=== PATIENT | female | born 1985 | race Caucasian/White ===

== ENCOUNTER 2020-08-20 10:13 | Inpatient (IN) | payer OTHER ==
[~2020-08-20] VITALS: Ht 154.9 cm; Wt 54.0 kg
[2020-08-20] MEDS ORDERED: NAPROXEN250 MG PO (10:32)
[2020-08-20 10:48] LABS: BASOPHILS % 0.8 % (0.0-1.0); LYMPHOCYTES # (AUTO) 0.3 (1.0-3.2); MEAN CORPUSCULAR HEMOGLOBIN 15.6 pg (28-32); MEAN CORPUSCULAR HGB CONC 25.1 g/dL (31-35); MEAN CORPUSCULAR VOLUME 62.1 fL (81-99); MONOCYTES # (AUTO) 0.3 (0.2-0.8); MONOCYTES % 11.2 % (4.4-11.3); NEUTROPHILS # (AUTO) 1.9 (2.1-6.9); NEUTROPHILS % 75.6 % (38.7-80.0); PLATELET COUNT 206 x10e3/uL (140-360); RED BLOOD COUNT 3.59 x10e6/uL (3.6-5.1); RED CELL DISTRIBUTION WIDTH 18.9 % (11.7-14.4)
[2020-08-20 10:57] LABS: HEMATOCRIT 22.3 % (34.2-44.1); HEMOGLOBIN 5.6 g/dL (12.0-16.0)
[2020-08-20] MEDS ORDERED: ONDANSETRON HCL INJ 2MG/ML 2ML 2 MG/ML VIAL IV PRN (11:00)
[2020-08-20] MEDS ORDERED: SODIUM CHLORIDE 0.9% 250ML 250 ML IV ONE (11:00)
[2020-08-20 11:02] LABS: INR 1.15; PROTHROMBIN TIME 15.5 seconds (11.9-14.5)
[2020-08-20 11:12] LABS: ALANINE AMINOTRANSFERASE 21 IU/L (0-55); ALBUMIN 3.7 g/dL (3.5-5.0); ALKALINE PHOSPHATASE 28 IU/L (40-150); ANION GAP 13.3 mmol/L (8-16); BLOOD UREA NITROGEN 15 mg/dL (7-26); BUN/CREATININE RATIO 19 (6-25); CALCIUM 8.7 mg/dL (8.4-10.2); CARBON DIOXIDE 20 mmol/L (22-29); CHLORIDE 106 mmol/L (98-107); CREATINE KINASE 37 IU/L (29-168); CREATININE, SERUM 0.79 mg/dL (0.57-1.11); EST GLOMERULAR FILTRATION RATE > 60 ML/MIN (60-); GLUCOSE 103 mg/dL (74-118); POTASSIUM 3.3 mmol/L (3.5-5.1); SODIUM 136 mmol/L (136-145)
[2020-08-20] MEDS: CEFTRIAXONE SOD 1 GM in SODIUM CHLORIDE 0.9% 50ML 50 ML IV SCH (11:31)
[2020-08-20 11:51] LABS: LYMPHOCYTES % (MANUAL) 13 % (19-48); MONOCYTES % (MANUAL) 9 % (3.4-9.0); NEUTROPHILS % (MANUAL) 78 % (40-74); PLATELET ESTIMATE ADEQUATE; PLATELET MORPHOLOGY COMMENT NORMAL
[2020-08-20 11:52] LABS: HYPOCHROMASIA MODERATE
[2020-08-20 11:53] LABS: OVALOCYTES FEW; RBC MORPHOLOGY COMMENT ABNORMAL
[2020-08-20 11:54] LABS: ELLIPTOCYTE, RBC SLIGHT; MICROCYTOSIS MODERATE; SCHISTOCYTES RARE
[2020-08-20 11:55] LABS: HELMET CELLS RARE
[2020-08-20 14:11] VITALS: BP 110/41
[2020-08-20] MEDS ORDERED: THIAMINE HCL INJ 100 MG/ML 2ML VIAL IV ONE ×2 (15:30→22:00)
[2020-08-20 15:57] VITALS: BP 96/56
[2020-08-20] MEDS ORDERED: IRON SUCROSE 100 MG in SODIUM CHLORIDE 0.9% 100 ML 100 ML IV SCH (16:00)
[2020-08-20 16:17] LABS: FERRITIN 42.17 ng/mL (4.63-204.00); FREE THYROXINE INDEX 2.1285 (1.4-3.8); THYROID STIMULATING HORMONE 0.383 uIU/mL (0.350-4.940)
[2020-08-20] MEDS ORDERED: SODIUM CHLORIDE 0.9% 50ML 50 ML ONE ×3 (17:15→22:10)
[2020-08-20] MEDS ORDERED: SODIUM CHLORIDE 0.9% 250ML 250 ML ONE (17:16)
[2020-08-20] MEDS ORDERED: KCL 20 MEQ PACKET/ ORAL SOLN PO ONE (18:00)
[2020-08-20 19:30] VITALS: BP 103/68
[2020-08-20 19:46] VITALS: BP 94/45
[2020-08-20 20:06] VITALS: BP 94/45
[2020-08-20] MEDS: IRON SUCROSE 100 MG in SODIUM CHLORIDE 0.9% 100 ML 100 ML IV SCH (22:38)
[2020-08-20] MEDS: ACETAMINOPHEN 325 MG TAB PO PRN (23:50)
[2020-08-20] MEDS ORDERED: ACETAMINOPHEN 325 MG TAB ONE (23:56)
[2020-08-21] VITALS (7 sets, daily range): BP systolic 95–103; BP diastolic 59–69
[2020-08-21 05:54] LABS: BASOPHILS % 0.9 % (0.0-1.0); EOSINOPHILS % 0.6 % (0.0-6.0); HEMATOCRIT 26.6 % (34.2-44.1); HEMOGLOBIN 7.5 g/dL (12.0-16.0); LYMPHOCYTES # (AUTO) 1.2 (1.0-3.2); LYMPHOCYTES % 34.9 % (18.0-39.1); MEAN CORPUSCULAR HEMOGLOBIN 18.7 pg (28-32); MEAN CORPUSCULAR HGB CONC 28.2 g/dL (31-35); MEAN CORPUSCULAR VOLUME 66.3 fL (81-99); MONOCYTES # (AUTO) 0.6 (0.2-0.8); MONOCYTES % 16.4 % (4.4-11.3); NEUTROPHILS # (AUTO) 1.6 (2.1-6.9); NEUTROPHILS % 46.9 % (38.7-80.0); PLATELET COUNT 182 x10e3/uL (140-360); RED BLOOD COUNT 4.01 x10e6/uL (3.6-5.1); RED CELL DISTRIBUTION WIDTH 20.7 % (11.7-14.4)
[2020-08-21 06:04] LABS: ALANINE AMINOTRANSFERASE 22 IU/L (0-55); ALBUMIN 3.2 g/dL (3.5-5.0); ALKALINE PHOSPHATASE 27 IU/L (40-150); ANION GAP 8.7 mmol/L (8-16); BLOOD UREA NITROGEN 12 mg/dL (7-26); BUN/CREATININE RATIO 17 (6-25); CALCIUM 8.2 mg/dL (8.4-10.2); CARBON DIOXIDE 23 mmol/L (22-29); CHLORIDE 109 mmol/L (98-107); CREATININE, SERUM 0.69 mg/dL (0.57-1.11); EST GLOMERULAR FILTRATION RATE > 60 ML/MIN (60-); GLUCOSE 92 mg/dL (74-118); POTASSIUM 3.7 mmol/L (3.5-5.1); SODIUM 137 mmol/L (136-145)
[2020-08-21 07:50] LABS: EOSINOPHILS % (MANUAL) 1 % (0-7); LYMPHOCYTES % (MANUAL) 34 % (19-48); MONOCYTES % (MANUAL) 6 % (3.4-9.0); NEUTROPHILS % (MANUAL) 58 % (40-74)
[2020-08-21 07:53] LABS: ANISOCYTOSIS MODERATE; HYPOCHROMASIA SLIGHT; OVALOCYTES FEW; PLATELET ESTIMATE ADEQUATE; PLATELET MORPHOLOGY COMMENT NORMAL
[2020-08-21 07:54] LABS: ELLIPTOCYTE, RBC SLIGHT; RBC MORPHOLOGY COMMENT ABNORMAL
[2020-08-21] MEDS: MULTIVITAMINS/MINERALS TAB PO SCH (09:08)
[2020-08-21] MEDS ORDERED: CEFTRIAXONE SOD 1 GM VIAL ONE (13:09)
[2020-08-21] MEDS ORDERED: SODIUM CHLORIDE 0.9% 50ML 100 ML ONE (13:09)
[2020-08-21] MEDS: CEFTRIAXONE SOD 1 GM in SODIUM CHLORIDE 0.9% 50ML 50 ML IV SCH (13:09)
[2020-08-21] MEDS: ACETAMINOPHEN 325 MG TAB PO PRN (13:17)
[2020-08-21] MEDS: ESTROGENS CONJUGATED 0.625 MG TAB PO PRN ×2 (13:17→19:42)
[2020-08-21] MEDS: IRON SUCROSE 100 MG in SODIUM CHLORIDE 0.9% 100 ML 100 ML IV SCH (22:45)
[2020-08-22] VITALS (8 sets, daily range): BP systolic 96–106; BP diastolic 41–71
[2020-08-22 06:29] LABS: BASOPHILS # (AUTO) 0.1 (0.0-0.1); BASOPHILS % 1.1 % (0.0-1.0); EOSINOPHILS # (AUTO) 0.1 (0.0-0.4); EOSINOPHILS % 1.3 % (0.0-6.0); HEMATOCRIT 25.5 % (34.2-44.1); HEMOGLOBIN 7.2 g/dL (12.0-16.0); LYMPHOCYTES # (AUTO) 1.9 (1.0-3.2); LYMPHOCYTES % 41.8 % (18.0-39.1); MEAN CORPUSCULAR HEMOGLOBIN 19.3 pg (28-32); MEAN CORPUSCULAR HGB CONC 28.2 g/dL (31-35); MEAN CORPUSCULAR VOLUME 68.2 fL (81-99); MONOCYTES # (AUTO) 0.4 (0.2-0.8); MONOCYTES % 7.7 % (4.4-11.3); NEUTROPHILS # (AUTO) 2.2 (2.1-6.9); NEUTROPHILS % 47.7 % (38.7-80.0); PLATELET COUNT 194 x10e3/uL (140-360); RED BLOOD COUNT 3.74 x10e6/uL (3.6-5.1); RED CELL DISTRIBUTION WIDTH 21.3 % (11.7-14.4); RETICULOCYTE % 0.7 % (0.8-2.2)
[2020-08-22] MEDS: MULTIVITAMINS/MINERALS TAB PO SCH (09:00)
[2020-08-22] MEDS ORDERED: SIMETHICONE 40 MG/0.6 ML BTL ONE (10:00)
[2020-08-22] MEDS ORDERED: PROPOFOL IV EMULSION 10 MG/ML 20 ML VIAL ONE (10:05)
[2020-08-22] MEDS ORDERED: FENTANYL CITRATE/PF 100MCG/2 ML INJ ONE (10:06)
[2020-08-22] MEDS ORDERED: MIDAZOLAM HCL 2 MG/2 ML VIAL ONE (10:06)
[2020-08-22] MEDS ORDERED: SODIUM CHLORIDE 0.9% 50ML 50 ML ONE (11:36)
[2020-08-22] MEDS ORDERED: CEFTRIAXONE SOD 1 GM VIAL ONE (11:36)
[2020-08-22] MEDS: CEFTRIAXONE SOD 1 GM in SODIUM CHLORIDE 0.9% 50ML 50 ML IV SCH (11:38)
[2020-08-22] MEDS: ESTROGENS CONJUGATED 0.625 MG TAB PO PRN ×2 (16:16→22:28)
[2020-08-22] MEDS: IRON SUCROSE 100 MG in SODIUM CHLORIDE 0.9% 100 ML 100 ML IV SCH (21:14)
[2020-08-23] VITALS (7 sets, daily range): BP systolic 91–102; BP diastolic 52–67
[2020-08-23 08:18] LABS: BASOPHILS # (AUTO) 0.1 (0.0-0.1); BASOPHILS % 1.4 % (0.0-1.0); EOSINOPHILS # (AUTO) 0.1 (0.0-0.4); EOSINOPHILS % 1.9 % (0.0-6.0); HEMATOCRIT 29.8 % (34.2-44.1); HEMOGLOBIN 8.1 g/dL (12.0-16.0); LYMPHOCYTES # (AUTO) 1.6 (1.0-3.2); LYMPHOCYTES % 43.1 % (18.0-39.1); MEAN CORPUSCULAR HEMOGLOBIN 18.6 pg (28-32); MEAN CORPUSCULAR HGB CONC 27.2 g/dL (31-35); MEAN CORPUSCULAR VOLUME 68.3 fL (81-99); MONOCYTES # (AUTO) 0.2 (0.2-0.8); MONOCYTES % 5.1 % (4.4-11.3); NEUTROPHILS # (AUTO) 1.8 (2.1-6.9); PLATELET COUNT 254 x10e3/uL (140-360); RED BLOOD COUNT 4.36 x10e6/uL (3.6-5.1); RED CELL DISTRIBUTION WIDTH 22.1 % (11.7-14.4)
[2020-08-23] MEDS: MULTIVITAMINS/MINERALS TAB PO SCH (08:38)
[2020-08-23] MEDS: ESTROGENS CONJUGATED 0.625 MG TAB PO PRN ×2 (08:38→14:59)
[2020-08-23 10:56] LABS: ANISOCYTOSIS MODERATE; HYPOCHROMASIA MODERATE; PLATELET ESTIMATE ADEQUATE; PLATELET MORPHOLOGY COMMENT NORMAL; RBC MORPHOLOGY COMMENT ABNORMAL
[2020-08-23 10:57] LABS: ELLIPTOCYTE, RBC SLIGHT; MICROCYTOSIS MODERATE
[2020-08-23] MEDS: CEFTRIAXONE SOD 1 GM in SODIUM CHLORIDE 0.9% 50ML 50 ML IV SCH (11:15)
[2020-08-23] MEDS ORDERED: CEFTRIAXONE SOD 1 GM VIAL ONE (12:53)
[2020-08-23] MEDS ORDERED: SODIUM CHLORIDE 0.9% 50ML 50 ML ONE (12:53)
[2020-08-23] MEDS ORDERED: FEROSUL325 MG PO (20:50)
== END 2020-08-23 22:07 | disposition home or self-care (01) | DRG 760 ==
LOC: ER 10:20 → ERHOLD 11:51 → MED/SURG2 14:33 → OBSVTOIN 08-23 10:21
PROVIDERS: ADMIT Internal Medicine; ATTEND Internal Medicine
PROC: 30233N1 Transfusion of Nonautologous Red Blood Cells into Peripheral Vein, Percutaneous Approach (ICD-10-PCS; principal; 2020-08-20)
PROC: 0DB98ZX Excision of Duodenum, Via Natural or Artificial Opening Endoscopic, Diagnostic (ICD-10-PCS; 2020-08-22)
PROC: 0DB78ZX Excision of Stomach, Pylorus, Via Natural or Artificial Opening Endoscopic, Diagnostic (ICD-10-PCS; 2020-08-22)
DX: N83.201 Unspecified ovarian cyst, right side (principal); K22.10 Ulcer of esophagus without bleeding; E87.2 Acidosis; K91.2 Postsurgical malabsorption, not elsewhere classified; K95.89 Other complications of other bariatric procedure; N92.0 Excessive and frequent menstruation with regular cycle; K44.9 Diaphragmatic hernia without obstruction or gangrene; D50.9 Iron deficiency anemia, unspecified; Z20.822 Contact with and (suspected) exposure to COVID-19; D50.0 Iron deficiency anemia secondary to blood loss (chronic); D72.819 Decreased white blood cell count, unspecified; Z98.84 Bariatric surgery status; E87.6 Hypokalemia
CPT/HCPCS: 36415; 43239; 76856; 80053; 82270; 82550; 82553; 82607; 82728; 83540; 83880; 84436; 84443; 84466; 84479; 84484; 85025; 85045; 85610; 86850; 86900; 86920; 88305; 88312; 99284; G0378; J0696; J1756; J2250; J2405; J3010; J3411; J7050; P9016; U0002

== ENCOUNTER 2021-09-01 15:42 | Emergency (ER) | payer OTHER ==
[~2021-09-01] VITALS: Ht 154.9 cm; Wt 72.6 kg
[~2021-09-01 15:42] MED LIST: FEROSUL325 MG PO; NAPROXEN250 MG PO
[2021-09-01 16:18] LABS: BASOPHILS % 0.3 % (0.0-1.0); EOSINOPHILS % 0.6 % (0.0-6.0); HEMATOCRIT 29.5 % (34.2-44.1); HEMOGLOBIN 9.1 g/dL (12.0-16.0); LYMPHOCYTES # (AUTO) 1.2 (1.0-3.2); LYMPHOCYTES % 18.7 % (18.0-39.1); MEAN CORPUSCULAR HEMOGLOBIN 26.8 pg (28-32); MEAN CORPUSCULAR HGB CONC 30.8 g/dL (31-35); MEAN CORPUSCULAR VOLUME 86.8 fL (81-99); MONOCYTES # (AUTO) 0.5 (0.2-0.8); MONOCYTES % 6.9 % (4.4-11.3); NEUTROPHILS # (AUTO) 4.7 (2.1-6.9); NEUTROPHILS % 72.4 % (38.7-80.0); PLATELET COUNT 254 x10e3/uL (140-360); RED CELL DISTRIBUTION WIDTH 24.1 % (11.7-14.4)
[2021-09-01 16:38] LABS: ALBUMIN 2.6 g/dL (3.5-5.0); ALBUMIN/GLOBULIN RATIO 0.8 (0.8-2.0); ANION GAP 9.7 mmol/L (8-16); CALCIUM 8.7 mg/dL (8.4-10.2); CREATININE, SERUM 0.64 mg/dL (0.57-1.11); POTASSIUM 3.7 mmol/L (3.5-5.1)
[2021-09-01 16:44] LABS: CREATINE KINASE MB 0.4 ng/mL (0-5.0)
[2021-09-01 17:09] VITALS: BP 104/61
== END 2021-09-01 17:11 | disposition home or self-care (01) ==
LOC: ER 16:10
DX: O09.893 Supervision of other high risk pregnancies, third trimester (principal); R06.02 Shortness of breath; Z98.84 Bariatric surgery status
CPT/HCPCS: 36415; 71045; 80053; 82550; 82553; 84484; 85025; 93005; 99284; U0002